=== PATIENT | female | born 1930 | race Caucasian/White ===

== ENCOUNTER → 2016-12-24 | Outpatient (CLI) | payer MEDICARE, OTHER | LOC: MW.CHFP 08:00 | CPT/HCPCS: 85610; 99211 ==

== ENCOUNTER → 2017-01-24 | Outpatient (CLI) | payer MEDICARE, OTHER | LOC: MW.CHFP 08:00 | PROVIDERS: ATTEND Student in an Organized Health Care Education/Training Program | DX: Z51.81 Encounter for therapeutic drug level monitoring (principal); Z79.01 Long term (current) use of anticoagulants; I48.91 Unspecified atrial fibrillation | CPT/HCPCS: 85610; 99211 ==

== ENCOUNTER → 2017-02-21 | Outpatient (CLI) | payer MEDICARE, OTHER | LOC: MW.CHFP 08:00 | PROVIDERS: ATTEND Student in an Organized Health Care Education/Training Program | DX: Z51.81 Encounter for therapeutic drug level monitoring (principal); Z79.01 Long term (current) use of anticoagulants; I48.91 Unspecified atrial fibrillation | CPT/HCPCS: 85610; 99211 ==

== ENCOUNTER → 2017-03-14 | Outpatient (CLI) | payer MEDICARE, OTHER | LOC: MW.CHFP 08:00 | PROVIDERS: ATTEND Student in an Organized Health Care Education/Training Program | DX: Z51.81 Encounter for therapeutic drug level monitoring (principal); Z79.01 Long term (current) use of anticoagulants; I48.91 Unspecified atrial fibrillation | CPT/HCPCS: 85610; 99211 ==

== ENCOUNTER 2017-10-15 15:14 | Emergency (ER) | payer MEDICARE, OTHER ==
--- NOTE | 2017-10-15 16:38 | EDM.PDOC ---
ED HPI GENERAL MEDICAL PROBLEM - General Chief Complaint: General Stated Complaint: FALL Time Seen by Provider: 10/15/17 15:18 Source of Information: Reports: Patient History Limitations: Reports: No Limitations - History of Present Illness INITIAL COMMENTS - FREE TEXT/NARRATIVE: HISTORY AND PHYSICAL: History of present illness: Patient is an 87-year-old female who presents to the emergency room with complaints of a fall and hitting her head. States she was in a hurry to get in the car with her son when she tripped and fell hitting her left side of her forehead. She denies any loss of consciousness. She states "I wouldn't have came in, but my son made me". Patient is on coumadin for a-fib. Small, nonbleeding, laceration noted to the left eyebrow. Pulses are equal and reactive bilaterally. Old healing bruises noted to her right forearm, patient reports that these are old due to her Coumadin use. Denies any chest pain, shortness of breath, abdominal pain, nausea, vomiting or diarrhea. She denies feeling lightheaded, near syncope, change in vision. Reports her immunizations are up-to-date including her tetanus. Past medical history of atrial fibrillation, CVA, hypertension, anemia, mitral regurgitation. Review of systems: As per history of present illness and below otherwise all systems reviewed and negative. Past medical history: As per history of present illness and as reviewed below otherwise noncontributory. Surgical history: As per history of present illness and as reviewed below otherwise noncontributory. Social history: No reported history of drug or alcohol abuse. Family history: As per history of present illness and as reviewed below otherwise noncontributory. Physical exam: General: Nontoxic-appearing 87-year-old female. Alert and oriented. Appears in no acute distress. HEENT: Atraumatic, normocephalic, pupils reactive, negative for conjunctival pallor or scleral icterus, mucous membranes moist, throat clear, neck supple, nontender, trachea midline. Lungs: Clear to auscultation, breath sounds equal bilaterally, chest nontender. Heart: S1S2, irregularly regular Abdomen: Soft, nondistended, nontender. Negative for masses or hepatosplenomegaly. Negative for costovertebral tenderness. Pelvis: Stable nontender. Genitourinary: Deferred. Rectal: Deferred. Skin: 0.75 cm laceration noted along the left eyebrow. No current bleeding noted. Old and healing bruises noted to extremities (states these are "normal" due to her coumadin use). C-Spine/Back: No pinpoint vertebral tenderness upon palpation. Did not appreciate any crepitus, step-offs, obvious deformities with palpation of the cervical, thoracic, lumbar spine. Ambulatory with assistance (patient's normal) Extremities: Moves all extremities without difficulty or deficits, negative for cords or calf pain. Neurovascular unremarkable. Neuro: Awake, alert, oriented. Cranial nerves II through XII unremarkable. Cerebellum unremarkable. Motor and sensory unremarkable throughout. Exam nonfocal. No changes noted to EKG. Labs are within normal limits. CT head and C-spine are within normal limits and show no acute fractures or bleeding. These results were shared with the patient and family member at bedside. Her face has been cleaned with chlorhexidine. No laceration repair is needed. She states she is comfortable to go home. She offers no current complaints. She states she will follow up with her primary caregiver in the next 1-2 days. Denies any further questions at this time. Diagnostics: CBC, PT/INR, CT of head and C-spine, EKG, orthostatic vitals Therapeutics: [] Impression: Head injury without loss of consciousness Fall Contusion Plan: 1. Please review the head injury instructions. 2. May use Tylenol as needed for pain management. Ice for the first 24 hours then may switch to gentle heat. 3. Follow-up with your primary caregiver in the next 1-2 days. Return to the ED as needed and as discussed. Definitive disposition and diagnosis as appropriate pending reevaluation and review of above. Onset: Today Onset Date: 10/15/17 Duration: Minutes: Location: Reports: Head, Face - Related Data Allergies Allergy/AdvReac Type Severity Reaction Status Date / Time codeine Allergy "feels Verified 10/15/17 15:43 like I'm flying" Home Meds: Home Meds Acetaminophen [Tylenol] 325 mg PO ASDIRECTED PRN 03/23/16 [History] Aspirin 81 mg PO DAILY 03/23/16 [History] Calcium Citrate/Vitamin D3 [Calcium Cit-Vit D 315-200] 1 each PO DAILY 03/23/16 [History] Cyanocobalamin (Vitamin B-12) [B-12] 1,000 mcg PO DAILY 03/23/16 [History] Lisinopril [Prinivil] 2.5 mg PO DAILY 03/23/16 [History] Loratadine 10 mg PO DAILY 03/23/16 [History] Metoprolol Succinate [Toprol XL 50mg] 50 mg PO DAILY 03/23/16 [History] Psyllium Husk/Aspartame [Metamucil Sugar-Free Powder] 1 tbsp PO DAILY PRN [History] Warfarin Sodium [Warfarin Sodium] 2.5 mg PO ASDIRECTED 03/23/16 [History] atorvaSTATin Calcium [Atorvastatin Calcium] 20 mg PO DAILY 03/23/16 [History] Past Medical History HEENT History: Reports: Epistaxis, Other (See Below) Other HEENT History: states 3 episodes of epistaxis this year. 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 History: atrial flutter DATA MANAGEMENT History: Reports: Musculoskeletal History: Reports: Fracture Neurological History: Reports: CVA - Past Surgical History Neurological Surgical History: Reports: None Musculoskeletal Surgical History: Reports: Hip Replacement, Knee Replacement Social & Family History - Tobacco Use Smoking Status *Q: Never Smoker Second Hand Smoke Exposure: No - Caffeine Use Caffeine Use: Reports: None - Recreational Drug Use Recreational Drug Use: No ED ROS GENERAL - Review of Systems Review Of Systems: ROS reveals no pertinent complaints other than HPI. ED EXAM, GENERAL - Physical Exam Exam: See Below (See dictation) Course - Vital Signs Last Recorded V/S: Last Vital Signs Temp 97.8 F 10/15/17 15:40 Pulse 76 10/15/17 15:40 Resp 20 10/15/17 15:40 BP 160/80 H 10/15/17 15:40 Pulse Ox 96 10/15/17 15:40 - Orders/Labs/Meds Orders: Active Orders 24 hr Category Date Time Status Communication Order [RC] STAT Care 10/15/17 15:51 Active EKG Documentation Completion [RC] STAT Care 10/15/17 16:38 Active Orthostatic Vital Signs [RC] ASDIRECTED Care 10/15/17 16:38 Active Cervical Spine wo Cont [CT] Stat Exams 10/15/17 15:39 Ordered Head wo Cont [CT] Stat Exams 10/15/17 15:39 Taken Labs: Laboratory Tests 10/15/17 10/15/17 10/15/17 Range/Units 15:37 15:37 15:42 WBC 7.73 (4.0-11.0) K/uL RBC 4.62 (4.30-5.90) M/uL Hgb 14.5 (12.0-16.0) g/dL Hct 44.7 (36.0-46.0) % MCV 96.8 (80.0-98.0) fL MCH 31.4 (27.0-32.0) pg MCHC 32.4 (31.0-37.0) g/dL RDW Std Deviation 49.1 (28.0-62.0) fl RDW Coeff of Lori 14 (11.0-15.0) % Plt Count 140 L (150-400) K/uL MPV 10.00 (7.40-12.00) fL Neut % (Auto) 64.5 (48.0-80.0) % Lymph % (Auto) 19.3 (16.0-40.0) % [place] % (Auto) 10.0 (0.0-15.0) % Eos % (Auto) 5.7 (0.0-7.0) % Baso % (Auto) 0.5 (0.0-1.5) % Neut # (Auto) 5.0 (1.4-5.7) K/uL Lymph # (Auto) 1.5 (0.6-2.4) K/uL [place] # (Auto) 0.8 (0.0-0.8) K/uL Eos # (Auto) 0.4 (0.0-0.7) K/uL Baso # (Auto) 0.0 (0.0-0.1) K/uL Nucleated RBC % 0.0 /100WBC Nucleated RBCs # 0 K/uL INR 1.66 H (0.86-1.11) Troponin I < 0.10 (0.0-0.29) NG/ML Departure - Departure Time of Disposition: 17:41 Disposition: Home, Self-Care 01 Clinical Impression: Head injury, acute, without loss of consciousness Qualifiers: Encounter type: initial encounter Qualified Code(s): S09.90XA - Unspecified injury of head, initial encounter Contusion Qualifiers: Encounter type: initial encounter Contusion area: head Contusion of head detail : scalp Qualified Code(s): S00.03XA - Contusion of scalp, initial encounter - Discharge Information Referrals: PCP,None [Primary Care Provider] - Forms: ED Department Discharge Additional Instructions: My general discharge The following information is given to patients seen in the emergency department who are being discharged to home. This information is to outline your options for follow-up care. We provide all patients seen in our emergency department with a follow-up referral. The need for follow-up, as well as the timing and circumstances, are variable depending upon the specifics of your emergency department visit. If you don't have a primary care physician on staff, we will provide you with a referral. We always advise you to contact your personal physician following an emergency department visit to inform them of the circumstance of the visit and for follow-up with them and/or the need for any referrals to a consulting specialist. The emergency department will also refer you to a specialist when appropriate. This referral assures that you have the opportunity for follow-up care with a specialist. All of these measure are taken in an effort to provide you with optimal care, which includes your follow-up. Under all circumstances we always encourage you to contact your private physician who remains a resource for coordinating your care. When calling for follow-up care, please make the office aware that this follow-up is from your recent emergency room visit. If for any reason you are refused follow-up, please contact the Emergency Department at and asked to speak to the emergency department charge nurse. Primary Care [address] [place] [id number] 1. Please review the head injury instructions. 2. May use Tylenol as needed for pain management. Ice for the first 24 hours then may switch to gentle heat. 3. Follow-up with your primary caregiver in the next 1-2 days. Return to the ED as needed and as discussed. - My Orders Last 24 Hours: My Active Orders 10/15/17 15:39 Cervical Spine wo Cont [CT] Stat Head wo Cont [CT] Stat 10/15/17 15:51 Communication Order [RC] STAT 10/15/17 16:38 EKG Documentation Completion [RC] STAT Orthostatic Vital Signs [RC] ASDIRECTED - Assessment/Plan Last 24 Hours: My Active Orders 10/15/17 15:39 Cervical Spine wo Cont [CT] Stat Head wo Cont [CT] Stat 10/15/17 15:51 Communication Order [RC] STAT 10/15/17 16:38 EKG Documentation Completion [RC] STAT Orthostatic Vital Signs [RC] ASDIRECTED
[2017-10-15 18:15] VITALS: BP 158/74
--- NOTE | 2017-10-16 10:47 | CT ---
EXAM DATE: 10/15/17 PATIENT'S AGE: 87 Patient: SANDOVAL VALDERRAMA Facility: [place], [place] Site . Site : [id number] Study: CT Head [id number] 4:29:01 PM Ordering Physician: Doctor Cantu Final Report: INDICATION: 87-year-old female, status post fall. TECHNIQUE: CT Head without i.v. contrast. COMPARISON: Prior head CT dated 10/11/2016. FINDINGS: Underlying atrophy with stable caliber of lateral ventricles and underlying chronic microvascular disease. Amin-white matter differentiation preserved. No intracranial hemorrhage or abnormal extra-axial fluid collection. No midline shift. Unremarkable appearance to the thalami and basal ganglia. Incidental note of cavum vergae, unchanged. Calcified plaque involving the bilateral intracranial internal carotid arteries and distal vertebral arteries. No dense MCA sign. Calvarium intact. Paranasal sinuses and mastoid air cells are clear. IMPRESSION: 1. Age-related atrophy and chronic microvascular disease. No acute abnormality or hemorrhage. Dictated by Jose Carter MD @ 10/15/2017 5:29:25 PM Dictated by: Jose Carter MD @ 10/15/2017 17:29:40 (Electronic Signature) Report Signed by Proxy. [facility]ER[facility] CHAFFEE HOSPITALTiffani
--- NOTE | 2017-10-16 10:48 | CT ---
EXAM DATE: 10/15/17 PATIENT'S AGE: 87 Patient: SANDOVAL VALDERRAMA Facility: [place], [place] Site Site : 1932 Study: CT Spine Cervical [id number]/26/2017 4:36:07 PM Ordering Physician: ZARIA KAY NP Final Report: INDICATION: Status post fall. TECHNIQUE: CT cervical spine without i.v. contrast. Coronal and sagittal reformats were obtained. COMPARISON: None FINDINGS: Vertebral alignment: Alignment is normal. Vertebrae: No acute fractures or aggressive osseous lesions are identified. Discs and facet joints: Multilevel degenerative disk disease. Severe multilevel facet hypertrophic changes. Extraspinal findings: The prevertebral soft tissues are unremarkable in appearance. The visualized lung apices and mediastinum are unremarkable. IMPRESSION: 1. No acute cervical spine fracture or abnormal subluxation injury. 2. Multilevel cervical spine degenerative disc disease with severe facet hypertrophic changes. Dictated by Jose Carter MD @ 10/15/2017 5:39:54 PM Dictated by: Jose Carter MD @ 10/15/2017 17:39:59 (Electronic Signature) Report Signed by Proxy. LIN
== END 2017-10-15 18:00 | disposition home or self-care (01) ==
LOC: MW.ED 15:14
DX: S01.112A Laceration without foreign body of left eyelid and periocular area, initial encounter (principal); S09.90XA Unspecified injury of head, initial encounter; I48.91 Unspecified atrial fibrillation; Z79.82 Long term (current) use of aspirin; Z79.899 Other long term (current) drug therapy; Z79.01 Long term (current) use of anticoagulants; W01.10XA Fall on same level from slipping, tripping and stumbling with subsequent striking against unspecified object, initial encounter; Z88.5 Allergy status to narcotic agent
CPT/HCPCS: 36415; 70450; 70450-26; 72125; 72125-26; 84484; 85025; 85610; 93005; 99284; 99284-25

== ENCOUNTER 2017-11-17 16:57 | Inpatient (IN) | payer MEDICARE, OTHER ==
--- NOTE | 2017-11-17 17:32 | EDM.PDOC ---
ED HPI GENERAL MEDICAL PROBLEM - General Chief Complaint: Trauma Stated Complaint: PT FELL AND HURT RT KNEE Time Seen by Provider: 11/17/17 17:34 Source of Information: Reports: Patient History Limitations: Reports: No Limitations - History of Present Illness INITIAL COMMENTS - FREE TEXT/NARRATIVE: HISTORY AND PHYSICAL: History of present illness: Patient is an 87-year-old female who presents to the emergency room by ambulance after falling yesterday and now has complaints of right knee pain. She states that yesterday around 8 PM she was folding some blankets and trying to bring them to her closet when she lost her balance and fell. She tried to crawl to the phone to call her son but was unable to reach her. Her son came home around 8:30 PM and did assist her back to her bedroom. This morning she tried to get up to ambulate and states she was unable to do so due to the right knee pain. As the day has progressed she has had increased pain and is still unable to bear weight, and called the ambulance for evaluation. The patient does take warfarin. She states she did not hit her head or any loss of consciousness. She denies any chest pain, shortness of breath, abdominal pain, nausea, vomiting or diarrhea. Review of systems: As per history of present illness and below otherwise all systems reviewed and negative. Past medical history: As per history of present illness and as reviewed below otherwise noncontributory. Surgical history: As per history of present illness and as reviewed below otherwise noncontributory. Social history: No reported history of drug or alcohol abuse. Family history: As per history of present illness and as reviewed below otherwise noncontributory. Physical exam: Gen.: Well-developed and well-nourished 87-year-old female. Alert and oriented. Nontoxic appearing and in no acute distress. HEENT: Atraumatic, normocephalic, pupils reactive, negative for conjunctival pallor or scleral icterus, mucous membranes moist, throat clear, neck supple, nontender, trachea midline. Lungs: Clear to auscultation, breath sounds equal bilaterally, chest nontender. Heart: S1S2, regularly irregular Abdomen: Soft, nondistended, nontender. Negative for masses or hepatosplenomegaly. Negative for costovertebral tenderness. Pelvis: Stable nontender. Genitourinary: Deferred. Rectal: Deferred. Skin: Small abrasion to right knee and elbow. Extremities: Atraumatic, negative for cords or calf pain. Neurovascular unremarkable. Neuro: Awake, alert, oriented. Cranial nerves II through XII unremarkable. Cerebellum unremarkable. Motor and sensory unremarkable throughout. Exam nonfocal. When the nursing staff was assisting the patient to the cot she was incontinent and had a strong odor. Will add a urinalysis to her lab work. Patient has been falling "more often" at home. She does take Coumadin, will do a CT of the head and C-spine for precautionary measures. Head CT and cervical spine are normal. The knee x-ray shows an acute nondisplaced fracture of the lateral aspect of the distal femoral metaphysis. We do not have orthopedics on-call at this time. They will be available tomorrow. Patient states that she is uncomfortable going home and she does not feel she can bear weight and move around in her house. The at the bedside is refusing to allow her to be discharged. He states that she is unable to use a walker "when she is well... how will she move with a fracture". She is on 3 L per nasal cannula and satting 92%. On room air she was satting 88-90%. Dr. Romo was consulted on this case. He will admit her for fall, UTI and hypoxemia. The plan is to consult Orthopedics tomorrow when they are available. Diagnostics: CBC, CMP, troponin, EKG, chest x-ray, head/c-spine CT, right knee x-ray Therapeutics: Oxygen, morphine Impression: #1 Fall #2 Nondisplaced fracture distal femoral metaphysis #3 UTI #4 Hypoxemia Plan: Observation admission Definitive disposition and diagnosis as appropriate pending reevaluation and review of above. Duration: Day(s): Location: Reports: Lower Extremity, Right right knee Pain Score (Numeric/FACES): 10 - Related Data Allergies Allergy/AdvReac Type Severity Reaction Status Date / Time codeine Allergy "feels Verified 11/17/17 17:22 like I'm flying" Home Meds: Home Meds Acetaminophen [Tylenol] 325 mg PO ASDIRECTED PRN 03/23/16 [History] Aspirin 81 mg PO DAILY 03/23/16 [History] Calcium Citrate/Vitamin D3 [Calcium Cit-Vit D 315-200] 1 each PO DAILY 03/23/16 [History] Cyanocobalamin (Vitamin B-12) [B-12] 1,000 mcg PO DAILY 03/23/16 [History] Lisinopril [Prinivil] 2.5 mg PO DAILY 03/23/16 [History] Loratadine 10 mg PO DAILY 03/23/16 [History] Metoprolol Succinate [Toprol XL 50mg] 50 mg PO DAILY 03/23/16 [History] Warfarin Sodium [Warfarin Sodium] 2.5 mg PO ASDIRECTED 03/23/16 [History] atorvaSTATin Calcium [Atorvastatin Calcium] 20 mg PO DAILY 03/23/16 [History] Past Medical History HEENT History: Reports: Epistaxis, Other (See Below) Other HEENT History: states 3 episodes of epistaxis this year. 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 (See dictation) ED EXAM, GENERAL - Physical Exam Exam: See Below (See dictation) Course - Vital Signs Last Recorded V/S: Last Vital Signs Temp 97.8 F 11/17/17 19:40 Pulse 62 11/17/17 19:40 Resp 18 11/17/17 19:40 BP 155/92 H 11/17/17 19:40 Pulse Ox 94 L 11/17/17 19:40 - Orders/Labs/Meds Orders: Active Orders 24 hr Category Date Time Status EKG Documentation Completion [RC] STAT Care 11/17/17 17:32 Active Cervical Spine 2V or 3V [CR] Stat Exams 11/17/17 17:32 Taken Chest 1V Frontal [CR] Stat Exams 11/17/17 17:32 Taken Head wo Cont [CT] Stat Exams 11/17/17 17:32 Taken Knee 1V or 2V Rt [CR] Stat Exams 11/17/17 17:32 Taken CULTURE URINE [RM] Stat Lab 11/17/17 19:40 Ordered Labs: Laboratory Tests 11/17/17 11/17/17 11/17/17 Range/Units 17:02 17:02 17:02 WBC 8.52 (4.0-11.0) K/uL RBC 4.77 (4.30-5.90) M/uL Hgb 14.8 (12.0-16.0) g/dL Hct 45.5 (36.0-46.0) % MCV 95.4 (80.0-98.0) fL MCH 31.0 (27.0-32.0) pg MCHC 32.5 (31.0-37.0) g/dL RDW Std Deviation 47.0 (28.0-62.0) fl RDW Coeff of Lori 14 (11.0-15.0) % Plt Count 151 (150-400) K/uL MPV 11.00 (7.40-12.00) fL Neut % (Auto) 65.4 (48.0-80.0) % Lymph % (Auto) 19.8 (16.0-40.0) % [place] % (Auto) 9.6 (0.0-15.0) % Eos % (Auto) 4.7 (0.0-7.0) % Baso % (Auto) 0.5 (0.0-1.5) % Neut # (Auto) 5.6 (1.4-5.7) K/uL Lymph # (Auto) 1.7 (0.6-2.4) K/uL [place] # (Auto) 0.8 (0.0-0.8) K/uL Eos # (Auto) 0.4 (0.0-0.7) K/uL Baso # (Auto) 0.0 (0.0-0.1) K/uL Nucleated RBC % 0.2 /100WBC Nucleated RBCs # 0 K/uL INR 2.68 Sodium 141 (136-146) mmol/L Potassium 4.1 (3.5-5.1) mmol/L Chloride 107 (98-110) mmol/L Carbon Dioxide 23 (21-31) mmol/L BUN 15 (6.0-23.0) mg/dL Creatinine 0.8 (0.6-1.5) mg/dL Est Cr Clr Drug Dosing 44.40 mL/min Estimated GFR (MDRD) > 60.0 ml/min Glucose 97 (60-110) mg/dL Calcium 9.3 (8.8-10.8) mg/dL Total Bilirubin 1.9 H (0.1-1.5) mg/dL AST 25 (5-40) IU/L ALT 15 (8-54) IU/L Alkaline Phosphatase 86 (40-150) Creatine Kinase 74 (9-236) IU/L Troponin I (0.0-0.29) NG/ML Total Protein 7.0 (6.0-8.0) g/dL Albumin 3.9 (3.4-4.8) g/dL Globulin 3.1 (2.0-3.5) g/dL Albumin/Globulin Ratio 1.3 (1.3-2.8) Urine Color Urine Appearance Urine pH (5.0-8.0) Ur Specific [place] (1.001-1.035) Urine Protein (NEGATIVE) mg/dL Urine Glucose (UA) (NEGATIVE) mg/dL Urine Ketones (NEGATIVE) mg/dL Urine Occult Blood (NEGATIVE) Urine Nitrite (NEGATIVE) Urine Bilirubin (NEGATIVE) Urine Urobilinogen (<2.0) EU/dL Ur Leukocyte Esterase (NEGATIVE) Urine RBC (0-2/HPF) Urine WBC (0-5/HPF) Ur Epithelial Cells (NONE-FEW) Urine Bacteria (NEGATIVE) 11/17/17 11/17/17 Range/Units 17:02 17:10 WBC (4.0-11.0) K/uL RBC (4.30-5.90) M/uL Hgb (12.0-16.0) g/dL Hct (36.0-46.0) % MCV (80.0-98.0) fL MCH (27.0-32.0) pg MCHC (31.0-37.0) g/dL RDW Std Deviation (28.0-62.0) fl RDW Coeff of Lori (11.0-15.0) % Plt Count (150-400) K/uL MPV (7.40-12.00) fL Neut % (Auto) (48.0-80.0) % Lymph % (Auto) (16.0-40.0) % [place] % (Auto) (0.0-15.0) % Eos % (Auto) (0.0-7.0) % Baso % (Auto) (0.0-1.5) % Neut # (Auto) (1.4-5.7) K/uL Lymph # (Auto) (0.6-2.4) K/uL [place] # (Auto) (0.0-0.8) K/uL Eos # (Auto) (0.0-0.7) K/uL Baso # (Auto) (0.0-0.1) K/uL Nucleated RBC % /100WBC Nucleated RBCs # K/uL INR Sodium (136-146) mmol/L Potassium (3.5-5.1) mmol/L Chloride (98-110) mmol/L Carbon Dioxide (21-31) mmol/L BUN (6.0-23.0) mg/dL Creatinine (0.6-1.5) mg/dL Est Cr Clr Drug Dosing mL/min Estimated GFR (MDRD) ml/min Glucose (60-110) mg/dL Calcium (8.8-10.8) mg/dL Total Bilirubin (0.1-1.5) mg/dL AST (5-40) IU/L ALT (8-54) IU/L Alkaline Phosphatase (40-150) Creatine Kinase (9-236) IU/L Troponin I < 0.10 (0.0-0.29) NG/ML Total Protein (6.0-8.0) g/dL Albumin (3.4-4.8) g/dL Globulin (2.0-3.5) g/dL Albumin/Globulin Ratio (1.3-2.8) Urine Color YELLOW Urine Appearance CLEAR Urine pH 6.0 (5.0-8.0) Ur Specific [place] 1.025 (1.001-1.035) Urine Protein 100 (NEGATIVE) mg/dL Urine Glucose (UA) NEGATIVE (NEGATIVE) mg/dL Urine Ketones NEGATIVE (NEGATIVE) mg/dL Urine Occult Blood LARGE H (NEGATIVE) Urine Nitrite POSITIVE H (NEGATIVE) Urine Bilirubin SMALL H (NEGATIVE) Urine Urobilinogen 1.0 (<2.0) EU/dL Ur Leukocyte Esterase LARGE (NEGATIVE) Urine RBC 40-45 (0-2/HPF) Urine WBC 100-120 (0-5/HPF) Ur Epithelial Cells FEW (NONE-FEW) Urine Bacteria 1+ H (NEGATIVE) Meds: Medications Discontinued Medications Generic Name Dose Route Start Last Admin Trade Name Melida PRN Reason Stop Dose Admin Cephalexin 500 mg 11/17/17 19:09 Keflex PO 11/17/17 19:10 ONETIME ONE Departure - Departure Time of Disposition: 20:07 Disposition: Refer to Observation Clinical Impression: Hypoxemia Fall Qualifiers: Encounter type: initial encounter Qualified Code(s): W19.XXXA - Unspecified fall, initial encounter Fracture, femur, distal Qualifiers: Encounter type: initial encounter Fracture type: closed Fracture morphology: other fracture Laterality: right Qualified Code(s): S72.491A - Other fracture of lower end of right femur, initial encounter for closed fracture UTI (urinary tract infection) Qualifiers: Urinary tract infection type: acute cystitis Hematuria presence: with hematuria Qualified Code(s): N30.01 - Acute cystitis with hematuria - Discharge Information Forms: ED Department Discharge - My Orders Last 24 Hours: My Active Orders 11/17/17 17:32 EKG Documentation Completion [RC] STAT Cervical Spine 2V or 3V [CR] Stat Chest 1V Frontal [CR] Stat Head wo Cont [CT] Stat Knee 1V or 2V Rt [CR] Stat 11/17/17 19:40 CULTURE URINE [RM] Stat - Assessment/Plan Last 24 Hours: My Active Orders 11/17/17 17:32 EKG Documentation Completion [RC] STAT Cervical Spine 2V or 3V [CR] Stat Chest 1V Frontal [CR] Stat Head wo Cont [CT] Stat Knee 1V or 2V Rt [CR] Stat 11/17/17 19:40 CULTURE URINE [RM] Stat
[2017-11-17 18:18] LABS: CHLORIDE,CL 107 mmol/L (98-110); SODIUM,NA 141 mmol/L (136-146)
[2017-11-17] MEDS ORDERED: Cephalexin 500 MG Cap PO ONE (19:09)
[2017-11-17] MEDS ORDERED: Acetaminophen 325 MG Tab PO PRN (23:00)
[2017-11-17] MEDS ORDERED: Ondansetron 4 MG/2 ML SDV IVPUSH PRN (23:25)
--- NOTE | 2017-11-17 23:44 | PCM.HP ---
H&P History of Present Illness - General Admit Problem/Dx: Admission Diagnosis/Problem Admission Diagnosis/Problem UTI, Urinary tract infectious disease - History of Present Illness Initial Comments - Free Text/Narative: 87 yo female with pmh of atrial fibrillation and CVA on coumadin who presents to the ED with right leg pain. Patient tripped over her feet while trying to pick something off the ground. She fell and hear something. She had pain in her right leg immediatly. The fall occured yesterday and she sat in her chair most of the day today as she was afraid to come in as she did not want to be sent to [facility]. She did call EMS as she was not able to move her leg without pain. In the ED she was discovered on X-ray to have an acute nondisplaced frature of the lateral aspect of the distal femoral metaphysis with lipohemarthrosis. She was also noted to have a UTI. She denies any chest pain, shortness of breath, dizziness, numbness or weakness. right knee Pain Score (Numeric/FACES): 5 - Related Data Allergies/Adverse Reactions: Allergies Allergy/AdvReac Type Severity Reaction Status Date / Time codeine Allergy "feels Verified 11/17/17 17:22 like I'm flying" Home Medications: Home Meds Acetaminophen [Tylenol] 325 mg PO ASDIRECTED PRN 03/23/16 [History] Aspirin 81 mg PO DAILY 03/23/16 [History] Calcium Citrate/Vitamin D3 [Calcium Cit-Vit D 315-200] 1 each PO DAILY 03/23/16 [History] Cyanocobalamin (Vitamin B-12) [B-12] 1,000 mcg PO DAILY 03/23/16 [History] Lisinopril [Prinivil] 2.5 mg PO DAILY 03/23/16 [History] Loratadine 10 mg PO BEDTIME 03/23/16 [History] Metoprolol Succinate [Toprol XL 50mg] 50 mg PO DAILY 03/23/16 [History] Warfarin Sodium [Warfarin Sodium] 2.5 mg PO BEDTIME 03/23/16 [History] atorvaSTATin Calcium [Atorvastatin Calcium] 20 mg PO DAILY 03/23/16 [History] Past Medical History HEENT History: Reports: Epistaxis, Other (See Below) Other HEENT History: states 3 episodes of epistaxis this year. 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: Musculoskeletal History: Reports: Fracture Neurological History: Reports: CVA - Infectious Disease History Infectious Disease History: Reports: Chicken Pox, Measles - Past Surgical History Neurological Surgical History: Reports: None Musculoskeletal Surgical History: Reports: Hip Replacement, Knee Replacement Social & Family History - Family History Family Medical History: Noncontributory - Tobacco Use Smoking Status *Q: Never Smoker Second Hand Smoke Exposure: No - Caffeine Use Caffeine Use: Reports: Tea - Recreational Drug Use Recreational Drug Use: No H&P Review of Systems - Review of Systems: Review Of Systems: ROS reveals no pertinent complaints other than HPI. Exam - Exam Exam: See Below - Vital Signs Vital Signs: Last Vital Signs Temp 36.6 C 11/17/17 20:59 Pulse 69 11/17/17 20:59 Resp 16 11/17/17 20:59 BP 103/81 11/17/17 20:59 Pulse Ox 92 L 11/17/17 20:59 Weight: 78.8 kg - Exam General: Alert, Oriented HEENT: Mucosa Moist & Gully Neck: Supple Lungs: Clear to Auscultation, Normal Respiratory Effort Cardiovascular: Regular Rate, Regular Rhythm GI/Abdominal Exam: Soft, Non-Tender, No Distention Extremities: Non-Tender, No Pedal Edema, Normal Capillary Refill. No: Joint Swelling Skin: Warm, Dry, Intact Neurological: Sensation Intact. No: Focal Deficit - Patient Data Result Diagrams: 11/17/17 17:02 11/17/17 17:02 *Q Meaningful Use (ADM) - VTE *Q VTE Criteria *Q: - Stroke *Q Stroke Criteria *Q: - AMI *Q AMI Criteria *Q: Problem List Initiated/Reviewed/Updated: Yes Orders Last 24hrs: Active Orders 24 hr Category Date Time Status Antiembolic Devices [RC] PER UNIT ROUTINE Care 11/17/17 23:26 Ordered Oxygen Therapy [RC] PRN Care 11/17/17 23:25 Ordered Up ad Deneen [RC] ASDIRECTED Care 11/17/17 23:25 Ordered VTE/DVT Education [RC] PER UNIT ROUTINE Care 11/17/17 23:25 Ordered Vital Signs [RC] Q4H Care 11/17/17 23:25 Ordered Regular Diet [DIET] Diet 11/18/17 Breakfast Active BASIC METABOLIC PANEL,BMP [CHEM] Routine Lab 11/18/17 05:00 Ordered CBC WITH AUTO DIFF [HEME] Routine Lab 11/18/17 05:00 Ordered Acetaminophen [Tylenol] Med 11/17/17 23:00 Active 650 mg PO Q4H PRN Aspirin Med 11/18/17 09:00 Ordered 81 mg PO DAILY Cephalexin [Keflex] Med 11/18/17 23:00 Active 500 mg PO Q12H Lisinopril Med 11/18/17 09:00 Ordered 2.5 mg PO DAILY Metoprolol Succinate [Toprol XL] Med 11/18/17 09:00 Ordered 50 mg PO DAILY Ondansetron [Zofran] Med 11/17/17 23:25 Ordered 4 mg IVPUSH Q4H PRN atorvaSTATin [Lipitor] Med 11/18/17 09:00 Ordered 20 mg PO DAILY Sequential Compression Device [OM.PC] Per Unit Routine Oth 11/17/17 23:25 Ordered Resuscitation Status Routine Resus Stat 11/17/17 23:25 Ordered Medication Orders Acetaminophen (Tylenol) 650 mg PO Q4H PRN PRN Reason: Pain Aspirin (Aspirin) 81 mg PO DAILY PATRICIA Atorvastatin Calcium (Lipitor) 20 mg PO DAILY PATRICIA Cephalexin (Keflex) 500 mg PO Q12H PATRICIA Metoprolol Succinate (Toprol Xl) 50 mg PO DAILY PATRICIA Non-Formulary Medication (Lisinopril) 2.5 mg PO DAILY PATRICIA Ondansetron HCl (Zofran) 4 mg IVPUSH Q4H PRN PRN Reason: Nausea Assessment/Plan Comment:: 87 yo female admitted following a fall with femoral fracture Nondisplace right femoral fracture: will consult orthopedics UTI: on keflex
[2017-11-18 06:39] LABS: CHLORIDE,CL 107 mmol/L (98-110); SODIUM,NA 139 mmol/L (136-146)
[2017-11-18] MEDS ORDERED: Acetaminophen/HYDROcodone 325-5 MG Tab PO PRN (09:28)
[2017-11-18] MEDS: Morphine 2 MG/ML Syringe IVPUSH PRN ×2 (09:42→19:50)
[2017-11-18] MEDS: Aspirin 81 MG Tab.Chew PO SCH (10:16)
[2017-11-18] MEDS: atorvaSTATin 20 MG Tab PO SCH (10:16)
[2017-11-18] MEDS: Lisinopril 5 MG Tab PO SCH (10:17)
[2017-11-18] MEDS: Metoprolol Succinate 50 MG Tab.ER PO SCH (10:18)
--- NOTE | 2017-11-18 13:10 | PCM.PN ---
- General Info Date of Service: 11/18/17 Admission Dx/Problem (Free Text): Admission Diagnosis/Problem Admission Diagnosis/Problem UTI, Urinary tract infectious disease and distal femoral fracture on Right Subjective Update: Having pain to her R knee and slightly just above it. No chest pain or SOB. Otherwise doing ok, daughter at bedside. Functional Status: Reports: Tolerating Diet, Urinating. Denies: Pain Controlled , Ambulating - Review of Systems Pulmonary: Reports: No Symptoms. Denies: Shortness of Breath Cardiovascular: Reports: No Symptoms. Denies: Chest Pain Gastrointestinal: Reports: No Symptoms. Denies: Abdominal Pain, Nausea, Vomiting Musculoskeletal: Reports: Joint Pain (R knee pain) Neurological: Reports: No Symptoms. Denies: Confusion Psychiatric: Reports: No Symptoms. Denies: Confusion - Patient Data Vitals - Most Recent: Last Vital Signs Temp 97.2 F 11/18/17 11:51 Pulse 102 H 11/18/17 11:51 Resp 20 11/18/17 11:51 BP 109/76 11/18/17 11:51 Pulse Ox 98 11/18/17 11:51 Weight - Most Recent: 78.8 kg Med Orders - Current: Current Medications Acetaminophen (Tylenol) 650 mg PO Q4H PRN PRN Reason: Pain Hydrocodone Bitart/Acetaminophen ([place] 325-5 Mg) 1 tab PO Q4H PRN PRN Reason: Pain Aspirin (Aspirin) 81 mg PO DAILY [facility] Last Admin: 11/18/17 10:16 Dose: 81 mg Atorvastatin Calcium (Lipitor) 20 mg PO DAILY [facility] Last Admin: 11/18/17 10:16 Dose: 20 mg Cephalexin (Keflex) 500 mg PO Q12H [facility] Lisinopril (Prinivil) 2.5 mg PO DAILY [facility] Last Admin: 11/18/17 10:17 Dose: 2.5 mg Metoprolol Succinate (Toprol Xl) 50 mg PO DAILY [facility] Last Admin: 11/18/17 10:18 Dose: 50 mg Morphine Sulfate (Morphine) 2 mg IVPUSH Q4H PRN PRN Reason: severe pain Last Admin: 11/18/17 09:42 Dose: 2 mg Ondansetron HCl (Zofran) 4 mg IVPUSH Q4H PRN PRN Reason: Nausea Discontinued Medications Cephalexin (Keflex) 500 mg PO ONETIME ONE Stop: 11/17/17 19:10 Last Admin: 11/17/17 20:17 Dose: 500 mg - Exam General: Alert, Oriented, Cooperative, Mild Distress (Noted to be in pain) Neck: Supple Lungs: Clear to Auscultation, Normal Respiratory Effort Cardiovascular: Regular Rate, Regular Rhythm GI/Abdominal Exam: Normal Bowel Sounds, Soft, Non-Tender, No Organomegaly, No Distention, No Abnormal Bruit, No Mass, Pelvis Stable Extremities: Other (edema to R knee with some ecchymosis and tenderness to knee and just proximal. ) Skin: Ecchymosis (R knee and medial thigh) Neurological: No New Focal Deficit Psy/Mental Status: Alert, Normal Affect, Normal Mood - Problem List & Annotations (1) Fracture, femur, distal SNOMED Code(s): 252706465 Code(s): S72.409A - UNSP FRACTURE OF LOWER END OF UNSP FEMUR, INIT FOR CLOS FX Status: Acute Current Visit: Yes Qualifiers: Encounter type: initial encounter Fracture type: closed Fracture morphology: other fracture Laterality: right Qualified Code(s): S72.491A - Other fracture of lower end of right femur, initial encounter for closed fracture (2) Fall SNOMED Code(s): 2645017 Code(s): W19.XXXA - UNSPECIFIED FALL, INITIAL ENCOUNTER Status: Acute Current Visit: Yes Qualifiers: Encounter type: initial encounter Qualified Code(s): W19.XXXA - Unspecified fall, initial encounter (3) UTI (urinary tract infection) SNOMED Code(s): 01388052 Code(s): N39.0 - URINARY TRACT INFECTION, SITE NOT SPECIFIED Status: Acute Current Visit: Yes Qualifiers: Urinary tract infection type: acute cystitis Hematuria presence: with hematuria Qualified Code(s): N30.01 - Acute cystitis with hematuria (4) Atrial fibrillation SNOMED Code(s): 52222786 Code(s): I48.91 - UNSPECIFIED ATRIAL FIBRILLATION Status: Chronic Current Visit: Yes (5) Chronic anticoagulation SNOMED Code(s): 080809947 Code(s): Z79.01 - CARE HOME (CURRENT) USE OF ANTICOAGULANTS Status: Chronic Current Visit: Yes (6) History of CVA (cerebrovascular accident) SNOMED Code(s): 088791531 Code(s): Z86.73 - PRSNL HX OF TIA (TIA), AND CEREB INFRC W/O RESID DEFICITS Status: Chronic Current Visit: Yes - Problem List Review Problem List Initiated/Reviewed/Updated: Yes - My Orders Last 24 Hours: My Active Orders 11/18/17 11:21 Bedrest [RC] ASDIRECTED - Plan Plan:: 87 yo female admitted following a fall with distal femoral fracture 1. Nondisplaced right distal femoral fracture: Bedrest for now. Dr Fonseca to see this afternoon. Rockholds and Morphine ordered for pain control this morning. Tolerated Morphine well. 2. UTI: Asymptomatic, reports "I always have a UTI". Continue Keflex PO at this time. UC pending. 3. Afib: Continue Metoprolol, Continue Coumadin, INR 2.92 today. Monitor daily. Elevated this am, maybe due to pain. Monitor. 4. HTN: Stable. Continue Lisinopril. VTE prophylaxis: Coumadin Dispo: 2-3 days. Spoke with family regarding likely need for skilled care for awhile. Patient reluctant to go to [facility] but understands short term rehab may be necessary to get her back home and to remain independent. Changed to inpatient status.
--- NOTE | 2017-11-18 15:34 | PCM.CONS ---
H&P History of Present Illness - General Date of Service: 11/18/17 Admit Problem/Dx: Admission Diagnosis/Problem Admission Diagnosis/Problem UTI, Urinary tract infectious disease and distal femoral fracture on Right Source of Information: Patient History Limitations: Reports: No Limitations - History of Present Illness Initial Comments - Free Text/Narative: 87 y/o female who sustained a fall on 11/16/17. Continues to have pain in right knee. H/o R TKA many years ago--did well following surgery. Unable to WB. Was eval in ER. XR show nondisplaced fracture of lateral condyle. Admitted for pain control and UTI. Denies distal paralysis, paresthesias. Location: Reports: Lower Extremity, Right Quality: Reports: Ache, Sharp Severity: Moderate Improves with: Reports: Rest Worsens with: Reports: Movement Context: Reports: Trauma right knee Pain Score (Numeric/FACES): 5 - Related Data Allergies/Adverse Reactions: Allergies Allergy/AdvReac Type Severity Reaction Status Date / Time codeine Allergy "feels Verified 11/17/17 17:22 like I'm flying" Home Medications: Home Meds Acetaminophen [Tylenol] 325 mg PO ASDIRECTED PRN 03/23/16 [History] Aspirin 81 mg PO DAILY 03/23/16 [History] Calcium Citrate/Vitamin D3 [Calcium Cit-Vit D 315-200] 1 each PO DAILY 03/23/16 [History] Cyanocobalamin (Vitamin B-12) [B-12] 1,000 mcg PO DAILY 03/23/16 [History] Lisinopril [Prinivil] 2.5 mg PO DAILY 03/23/16 [History] Loratadine 10 mg PO BEDTIME 03/23/16 [History] Metoprolol Succinate [Toprol XL 50mg] 50 mg PO DAILY 03/23/16 [History] Warfarin Sodium [Warfarin Sodium] 2.5 mg PO BEDTIME 03/23/16 [History] atorvaSTATin Calcium [Atorvastatin Calcium] 20 mg PO DAILY 03/23/16 [History] Past Medical History HEENT History: Reports: Epistaxis, Other (See Below) Other HEENT History: states 3 episodes of epistaxis this year. 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: Musculoskeletal History: Reports: Fracture Neurological History: Reports: CVA - Infectious Disease History Infectious Disease History: Reports: Chicken Pox, Measles - Past Surgical History Neurological Surgical History: Reports: None Musculoskeletal Surgical History: Reports: Hip Replacement, Knee Replacement Social & Family History - Family History Family Medical History: Noncontributory - Tobacco Use Smoking Status *Q: Never Smoker Second Hand Smoke Exposure: No - Caffeine Use Caffeine Use: Reports: Tea - Recreational Drug Use Recreational Drug Use: No H&P Review of Systems - Review of Systems: Review Of Systems: See Below General: Reports: No Symptoms HEENT: Reports: No Symptoms Pulmonary: Reports: No Symptoms Cardiovascular: Reports: No Symptoms Gastrointestinal: Reports: No Symptoms Genitourinary: Reports: No Symptoms Musculoskeletal: Reports: Joint Pain Skin: Reports: No Symptoms Psychiatric: Reports: No Symptoms Neurological: Reports: No Symptoms Hematologic/Lymphatic: Reports: No Symptoms Immunologic: Reports: No Symptoms Exam - Exam Exam: See Below - Vital Signs Vital Signs: Last Vital Signs Temp 97.2 F 11/18/17 11:51 Pulse 102 H 11/18/17 11:51 Resp 20 11/18/17 11:51 BP 109/76 11/18/17 11:51 Pulse Ox 98 11/18/17 11:51 Weight: 78.8 kg - Exam HEENT: Conjunctiva Clear, Hearing Intact, Nares Patent, Pupils Reactive Neck: Supple, Trachea Midline Lungs: Normal Respiratory Effort Cardiovascular: Regular Rate GI/Abdominal Exam: Soft Neuro Extensive - Mental Status: Alert, Oriented x3, Normal Mood/Affect, Normal Cognition Psychiatric: Alert, Normal Affect, Normal Mood Physical Exam Comments:: Exam of RLE shows well healed anterior incision over knee. Moderate joint effusion. No pain in hip with ROM of hip. C/o pain in knee with any motion. Stable to varus/valgus stress. No calf TTP. AT/EHL/gastroc 5/5. Sensation intact. DP 2+. - Patient Data Result Diagrams: 11/18/17 06:03 11/18/17 06:03 Imaging Impressions Last 24 hrs: XR of R knee shows nondisplaced fracture of lateral condyle. TKA prosthesis in good position. Consult PN Assessment/Plan Procedures: Procedures ALANINE AMINO (ALT) (SGPT) (12/20/15) ASSAY OF CK (CPK) (08/25/15) ASSAY OF TROPONIN QUANT (10/15/17) ASSAY THYROID STIM HORMONE (09/23/17) CHEST X-RAY 1 VIEW FRONTAL (08/25/15) COMPLETE CBC AUTOMATED (09/23/17) COMPLETE CBC W/AUTO DIFF WBC (10/15/17) COMPREHEN METABOLIC PANEL (09/23/17) CONTROL OF NOSEBLEED (03/23/16) CONTROL OF NOSEBLEED (03/09/16) CREATINE MB FRACTION (08/25/15) CT HEAD/BRAIN W/O DYE (10/15/17) CT NECK SPINE W/O DYE (10/15/17) ELECTROCARDIOGRAM TRACING (10/15/17) EMERGENCY DEPT VISIT (10/15/17) EMERGENCY DEPT VISIT (03/25/16) EMERGENCY DEPT VISIT (08/25/15) LIPID PANEL (12/20/15) METABOLIC PANEL TOTAL CA (12/20/15) MICROBE SUSCEPTIBLE ANNA (08/10/15) OFFICE/OUTPATIENT VISIT EST (10/11/16) OFFICE/OUTPATIENT VISIT EST (08/22/15) OFFICE/OUTPATIENT VISIT EST (03/23/15) PPSV23 VACC 2 YRS+ SUBQ/IM (03/23/15) PROTHROMBIN TIME (10/15/17) RBC SED RATE AUTOMATED (10/11/16) ROUTINE VENIPUNCTURE (10/15/17) THROMBOPLASTIN TIME PARTIAL (03/09/16) TTE W/DOPPLER COMPLETE (08/16/15) URINALYSIS AUTO W/SCOPE (08/10/15) URINE BACTERIA CULTURE (08/10/15) URINE CULTURE/COLONY COUNT (08/10/15) X-RAY EXAM NECK SPINE 2-3 VW (10/11/16) (1) Fracture, femur, distal SNOMED Code(s): 909007865 Code(s): S72.409A - UNSP FRACTURE OF LOWER END OF UNSP FEMUR, INIT FOR CLOS FX Current Visit: Yes Qualifiers: Encounter type: initial encounter Fracture type: closed Fracture morphology: other fracture Laterality: right Qualified Code(s): S72.491A - Other fracture of lower end of right femur, initial encounter for closed fracture Problem List Initiated/Reviewed/Updated: Yes Plan: 1. CT scan of R knee to evaluate the fracture 2. knee immobilizer prn 3. PT to see for mobilization--TTWB RLE
--- NOTE | 2017-11-18 16:46 | CT ---
EXAM DATE: 11/18/17 PATIENT'S AGE: 87 Patient: SANDOVAL VALDERRAMA Facility: [place], [place] Site . Site : 1930 Study: CT Head WO CONT [id number]/28/2018 6:51:23 PM Ordering Physician: Doctor Cantu Final Report: INDICATION: Fall. Patient on blood thinners. TECHNIQUE: CT head without IV contrast. COMPARISON: CT head 11/01/20252016. FINDINGS: Small sclerotic focus in the upper right maxilla was not included on the prior exam and has a benign appearance. No intracranial hemorrhage, edema, or mass effect. Cavum septum pellucidum and vergae a normal variant finding. Moderate cerebral ends to lesser extent cerebellar atrophy. Moderately prominent patchy small vessel ischemic disease stable. The ventricles are mildly dilated and this is stable. Small old lacunar infarct in the right basal ganglia. Remainder negative. IMPRESSION: No acute intracranial disease. Stable head CT with no significant changes since 10/15/2017. Please note that all CT scans at this facility use dose modulation, iterative reconstruction, and/or weight-based dosing when appropriate to reduce radiation dose to as low as reasonably achievable. Dictated by Raji Mcdaniel MD @ Nov 17 2017 7:03PM (Electronic Signature) Report Signed by Proxy. LIN
--- NOTE | 2017-11-18 16:51 | CR ---
EXAM DATE: 11/18/17 PATIENT'S AGE: 87 Patient: SANDOVAL VALDERRAMA Facility: [place], [place] Site . Site : 1930 Study: XRay Chest [id number]/28/2018 7:39:17 PM Ordering Physician: Doctor Cantu Final Report: INDICATION: Fell. Blood thinners. TECHNIQUE: Portable AP image of the chest. COMPARISON: None. FINDINGS: No obvious infiltrate or pleural effusion. Moderate cardiomegaly. Pulmonary veins grossly normal in caliber. No obvious bony abnormality. IMPRESSION: Grossly negative chest except for moderate cardiomegaly. Dictated by Warren Snow MD @ Nov 17 2017 7:47PM (Electronic Signature) Report Signed by Proxy. LIN
--- NOTE | 2017-11-18 16:52 | CR ---
EXAM DATE: 11/18/17 PATIENT'S AGE: 87 Patient: SANDOVAL AVLDERRAMA Facility: [place], [place] Site . Site : 1930 Study: XRay Spine Cervical [id number]/28/2018 7:39:45 PM Ordering Physician: Doctor Cantu Final Report: INDICATION: Fell. Blood thinners. TECHNIQUE: Supine AP and cross-table lateral views of the cervical spine. COMPARISON: None. FINDINGS: C5 incompletely visualized and C6 and C7 not visualized on the lateral projection. No fracture or traumatic subluxation evident. Mild disk degeneration at C3-4 C4-5. Facet degenerative changes ranging from mild to advanced. IMPRESSION: 1. C5 incompletely visualized and C6 and C7 not visualized on the lateral projection. 2. No traumatic abnormality apparent. 3. Multilevel spondylosis. Dictated by Warren Snow MD @ Nov 17 2017 7:48PM (Electronic Signature) Report Signed by Proxy. LIN
--- NOTE | 2017-11-18 16:53 | CR ---
EXAM DATE: 11/18/17 PATIENT'S AGE: 87 Patient: SANDOVAL VALDERRAMA Facility: [place], [place] Site . Site : 1932 Study: XRay Knee Right [id number]/28/2018 7:40:15 PM Ordering Physician: Doctor Cantu Final Report: INDICATION: Fell. Blood thinners. TECHNIQUE: AP and cross-table lateral views of the right knee. COMPARISON: None. FINDINGS: Total knee arthroplasty. Prosthetic components well-seated and aligned. Acute nondisplaced fracture of the lateral aspect of the distal femoral metaphysis with step-off evident on the AP image. No other obvious fracture. Lipohemarthrosis demonstrated on the cross-table lateral view. IMPRESSION: 1. Acute nondisplaced fracture of the lateral aspect of the distal femoral metaphysis with lipohemarthrosis. 2. Total knee arthroplasty, intact. Dictated by Warren Snow MD @ Nov 17 2017 7:48PM (Electronic Signature) Report Signed by Proxy. LIN
[2017-11-18] MEDS: Cephalexin 500 MG Cap PO SCH (22:46)
[2017-11-19 06:04] LABS: CHLORIDE,CL 108 mmol/L (98-110); SODIUM,NA 139 mmol/L (136-146)
--- NOTE | 2017-11-19 08:20 | PCM.PN ---
- General Info Date of Service: 11/19/17 Admission Dx/Problem (Free Text): Admission Diagnosis/Problem Admission Diagnosis/Problem UTI, Urinary tract infectious disease and distal femoral fracture on Right Subjective Update: Feeling better this morning, no pain to R knee. NO chest pain or SOB. Tolerating fluids well, but just doesn't like drinking much. Functional Status: Reports: Pain Controlled, Tolerating Diet, Urinating - Review of Systems General: Reports: No Symptoms. Denies: Fever, Weakness, Fatigue HEENT: Reports: No Symptoms. Denies: Eye Pain, Headaches, Sore Throat, Visual Changes Pulmonary: Reports: No Symptoms. Denies: Shortness of Breath Cardiovascular: Reports: Edema (+1 to R leg). Denies: Chest Pain, Palpitations Gastrointestinal: Reports: No Symptoms. Denies: Abdominal Pain, Nausea, Vomiting Genitourinary: Reports: No Symptoms. Denies: Dysuria, Frequency, Burning Neurological: Reports: No Symptoms, Tremors. Denies: Confusion Psychiatric: Reports: No Symptoms. Denies: Confusion - Patient Data Vitals - Most Recent: Last Vital Signs Temp 97.5 F 11/19/17 04:00 Pulse 62 11/19/17 04:00 Resp 18 11/19/17 04:00 BP 110/54 L 11/19/17 04:00 Pulse Ox 96 11/19/17 04:00 Weight - Most Recent: 78.8 kg I&O - Last 24 Hours: Intake & Output 11/18/17 11/19/17 11/19/17 22:59 06:59 14:59 Intake Total 550 170 Output Total 425 335 Balance 125 -165 Lab Results Last 24 Hours: Laboratory Results - last 24 hr 11/19/17 11/19/17 11/19/17 Range/Units 04:58 04:58 04:58 WBC 6.65 (4.0-11.0) K/uL RBC 4.10 L (4.30-5.90) M/uL Hgb 12.7 (12.0-16.0) g/dL Hct 38.6 (36.0-46.0) % MCV 94.1 (80.0-98.0) fL MCH 31.0 (27.0-32.0) pg MCHC 32.9 (31.0-37.0) g/dL RDW Std Deviation 47.2 (28.0-62.0) fl RDW Coeff of Lori 14 (11.0-15.0) % Plt Count 132 L (150-400) K/uL MPV 10.30 (7.40-12.00) fL Neut % (Auto) 66.7 (48.0-80.0) % Lymph % (Auto) 19.7 (16.0-40.0) % [place] % (Auto) 10.4 (0.0-15.0) % Eos % (Auto) 2.9 (0.0-7.0) % Baso % (Auto) 0.3 (0.0-1.5) % Neut # (Auto) 4.4 (1.4-5.7) K/uL Lymph # (Auto) 1.3 (0.6-2.4) K/uL [place] # (Auto) 0.7 (0.0-0.8) K/uL Eos # (Auto) 0.2 (0.0-0.7) K/uL Baso # (Auto) 0.0 (0.0-0.1) K/uL Nucleated RBC % 0.0 /100WBC Nucleated RBCs # 0 K/uL INR 2.78 Sodium 139 (136-146) mmol/L Potassium 3.9 (3.5-5.1) mmol/L Chloride 108 (98-110) mmol/L Carbon Dioxide 24 (21-31) mmol/L BUN 20 (6.0-23.0) mg/dL Creatinine 0.8 (0.6-1.5) mg/dL Est Cr Clr Drug Dosing 44.72 mL/min Estimated GFR (MDRD) > 60.0 ml/min Glucose 113 H (60-110) mg/dL Calcium 8.3 L (8.8-10.8) mg/dL Med Orders - Current: Current Medications Acetaminophen (Tylenol) 650 mg PO Q4H PRN PRN Reason: Pain Hydrocodone Bitart/Acetaminophen ([place] 325-5 Mg) 1 tab PO Q4H PRN PRN Reason: Pain Last Admin: 11/18/17 13:12 Dose: 1 tab Aspirin (Aspirin) 81 mg PO DAILY [facility] Last Admin: 11/18/17 10:16 Dose: 81 mg Atorvastatin Calcium (Lipitor) 20 mg PO DAILY [facility] Last Admin: 11/18/17 10:16 Dose: 20 mg Cephalexin (Keflex) 500 mg PO Q12H [facility] Last Admin: 11/18/17 22:46 Dose: 500 mg Lisinopril (Prinivil) 2.5 mg PO DAILY [facility] Last Admin: 11/18/17 10:17 Dose: 2.5 mg Metoprolol Succinate (Toprol Xl) 50 mg PO DAILY [facility] Last Admin: 11/18/17 10:18 Dose: 50 mg Morphine Sulfate (Morphine) 2 mg IVPUSH Q4H PRN PRN Reason: severe pain Last Admin: 11/18/17 19:50 Dose: 2 mg Ondansetron HCl (Zofran) 4 mg IVPUSH Q4H PRN PRN Reason: Nausea Discontinued Medications Cephalexin (Keflex) 500 mg PO ONETIME ONE Stop: 11/17/17 19:10 Last Admin: 11/17/17 20:17 Dose: 500 mg - Exam General: Alert, Oriented, Cooperative, No Acute Distress Neck: Supple Lungs: Clear to Auscultation, Normal Respiratory Effort Cardiovascular: Regular Rate, Regular Rhythm GI/Abdominal Exam: Normal Bowel Sounds, Soft, Non-Tender, No Organomegaly, No Distention, No Abnormal Bruit, No Mass, Pelvis Stable Back Exam: Normal Inspection, Full Range of Motion Extremities: Pedal Edema (+1 to RLE), Joint Swelling (swelling noted to R knee with scant ecchymosis). No: Normal Range of Motion Neurological: No New Focal Deficit Psy/Mental Status: Alert, Normal Affect, Normal Mood - Problem List & Annotations (1) Fracture, femur, distal SNOMED Code(s): 228088264 Code(s): S72.409A - UNSP FRACTURE OF LOWER END OF UNSP FEMUR, INIT FOR CLOS FX Status: Acute Current Visit: Yes Qualifiers: Encounter type: initial encounter Fracture type: closed Fracture morphology: other fracture Laterality: right Qualified Code(s): S72.491A - Other fracture of lower end of right femur, initial encounter for closed fracture (2) Fall SNOMED Code(s): 0489014 Code(s): W19.XXXA - UNSPECIFIED FALL, INITIAL ENCOUNTER Status: Acute Current Visit: Yes Qualifiers: Encounter type: initial encounter Qualified Code(s): W19.XXXA - Unspecified fall, initial encounter (3) UTI (urinary tract infection) SNOMED Code(s): 16243532 Code(s): N39.0 - URINARY TRACT INFECTION, SITE NOT SPECIFIED Status: Acute Current Visit: Yes Qualifiers: Urinary tract infection type: acute cystitis Hematuria presence: with hematuria Qualified Code(s): N30.01 - Acute cystitis with hematuria (4) Atrial fibrillation SNOMED Code(s): 31632036 Code(s): I48.91 - UNSPECIFIED ATRIAL FIBRILLATION Status: Chronic Current Visit: Yes (5) Chronic anticoagulation SNOMED Code(s): 802066352 Code(s): Z79.01 - [facility] (CURRENT) USE OF ANTICOAGULANTS Status: Chronic Current Visit: Yes (6) History of CVA (cerebrovascular accident) SNOMED Code(s): 354437953 Code(s): Z86.73 - PRSNL HX OF TIA (TIA), AND CEREB INFRC W/O RESID DEFICITS Status: Chronic Current Visit: Yes - Problem List Review Problem List Initiated/Reviewed/Updated: Yes - My Orders Last 24 Hours: My Active Orders 11/18/17 11:21 Bedrest [RC] ASDIRECTED 11/20/17 05:00 INR,PT,PROTHROMBIN TIME [COAG] Routine 11/20/17 05:11 BMP [BASIC METABOLIC PANEL,BMP] [CHEM] AM CBC WITH AUTO DIFF [HEME] AM - Plan Plan:: 87 yo female admitted following a fall with distal femoral fracture 1. Nondisplaced right distal femoral fracture: pain well controlled. Dr Fonseca consulted yesterday. CT obtained today see report. PT ordered as well. [place] and Morphine ordered for pain control this morning. 2. UTI: Asymptomatic. Continue Keflex PO at this time. Urine very dark and cloudy this morning. Repeated UA/UC. First UC pending. If able to get up with assist will remove nixon later today. 3. Afib: Continue Metoprolol, Continue Coumadin, INR 2.78 today. Monitor. 4. HTN: Stable. Continue Lisinopril. VTE prophylaxis: Coumadin Dispo: 2-3 days. Plan for short term rehab in [place].
[2017-11-19] MEDS: atorvaSTATin 20 MG Tab PO SCH (08:32)
[2017-11-19] MEDS: Aspirin 81 MG Tab.Chew PO SCH (08:32)
[2017-11-19] MEDS: Lisinopril 5 MG Tab PO SCH (08:32)
[2017-11-19] MEDS: Metoprolol Succinate 50 MG Tab.ER PO SCH (08:33)
--- NOTE | 2017-11-19 08:56 | CT ---
CT scan of the knee Clinical history: Evaluate periprosthetic fracture at right total knee Comparison: Plain radiographs 11/17/2017. Findings: The total knee prosthesis is anchored appropriately with no lucencies about the component. There is a nondisplaced fracture line of the lateral femoral condyle extending medially approximately 1/2-2/3 the width of the neural condylar aspect of the prosthesis. Images are severely degraded by m etallic artifact and cannot be relied upon to document the fracture line in the axial plane or the sa gittal plane. The fracture line is annotated with arrows for review. Impression: Fracture documented as above.
[2017-11-19] MEDS ORDERED: Sodium Chloride 0.9% 1,000 ML IV SCH (09:15)
[2017-11-19] MEDS: Morphine 2 MG/ML Syringe IVPUSH PRN (09:29)
[2017-11-19] MEDS: Cephalexin 500 MG Cap PO SCH ×2 (10:39→23:38)
[2017-11-19] MEDS: Warfarin 2.5 MG Tab PO SCH (14:25)
[2017-11-20] MEDS: Morphine 2 MG/ML Syringe IVPUSH PRN (05:29)
[2017-11-20 06:21] LABS: CHLORIDE,CL 111 mmol/L (98-110); SODIUM,NA 140 mmol/L (136-146)
[2017-11-20] MEDS: atorvaSTATin 20 MG Tab PO SCH (08:56)
[2017-11-20] MEDS: Aspirin 81 MG Tab.Chew PO SCH (08:56)
[2017-11-20] MEDS: Lisinopril 5 MG Tab PO SCH (08:57)
[2017-11-20] MEDS: Metoprolol Succinate 50 MG Tab.ER PO SCH (08:57)
[2017-11-20] MEDS: Cephalexin 500 MG Cap PO SCH ×2 (10:22→23:35)
--- NOTE | 2017-11-20 11:20 | PCM.SURGPN ---
- General Info Date of Service: 11/20/17 Functional Status: Reports: Pain Controlled - Review of Systems General: Reports: No Symptoms Systems Review Comment:: Patient has been improving. Pain well controlled with occasional morphine. Has been getting OOB to chair with TTWB. Uses knee immobilizer a majority of the time. No other complaints today. - Patient Data Vitals - Most Recent: Last Vital Signs Temp 98.2 F 11/20/17 08:00 Pulse 84 11/20/17 08:57 Resp 18 11/20/17 08:00 BP 132/68 11/20/17 08:57 Pulse Ox 94 L 11/20/17 08:00 Weight - Most Recent: 78.8 kg I&O - Last 24 Hours: Intake & Output 11/19/17 11/20/17 11/20/17 22:59 06:59 14:59 Intake Total 560 490 Output Total 275 Balance 285 490 Lab Results Last 24 Hrs: Laboratory Results - last 24 hr 11/20/17 11/20/17 11/20/17 Range/Units 05:49 05:49 05:49 WBC 7.87 (4.0-11.0) K/uL RBC 4.07 L (4.30-5.90) M/uL Hgb 12.5 (12.0-16.0) g/dL Hct 38.5 (36.0-46.0) % MCV 94.6 (80.0-98.0) fL MCH 30.7 (27.0-32.0) pg MCHC 32.5 (31.0-37.0) g/dL RDW Std Deviation 47.7 (28.0-62.0) fl RDW Coeff of Lori 14 (11.0-15.0) % Plt Count 129 L (150-400) K/uL MPV 10.20 (7.40-12.00) fL Neut % (Auto) 63.9 (48.0-80.0) % Lymph % (Auto) 21.5 (16.0-40.0) % [place] % (Auto) 8.3 (0.0-15.0) % Eos % (Auto) 6.0 (0.0-7.0) % Baso % (Auto) 0.3 (0.0-1.5) % Neut # (Auto) 5.0 (1.4-5.7) K/uL Lymph # (Auto) 1.7 (0.6-2.4) K/uL [place] # (Auto) 0.7 (0.0-0.8) K/uL Eos # (Auto) 0.5 (0.0-0.7) K/uL Baso # (Auto) 0.0 (0.0-0.1) K/uL Nucleated RBC % 0.0 /100WBC Nucleated RBCs # 0 K/uL INR 2.82 Sodium 140 (136-146) mmol/L Potassium 3.9 (3.5-5.1) mmol/L Chloride 111 H (98-110) mmol/L Carbon Dioxide 23 (21-31) mmol/L BUN 19 (6.0-23.0) mg/dL Creatinine 0.8 (0.6-1.5) mg/dL Est Cr Clr Drug Dosing 44.72 mL/min Estimated GFR (MDRD) > 60.0 ml/min Glucose 91 (60-110) mg/dL Calcium 8.0 L (8.8-10.8) mg/dL Total Bilirubin 1.5 (0.1-1.5) mg/dL AST 24 (5-40) IU/L ALT 15 (8-54) IU/L Alkaline Phosphatase 62 (40-150) Total Protein 5.5 L (6.0-8.0) g/dL Albumin 3.1 L (3.4-4.8) g/dL Globulin 2.4 (2.0-3.5) g/dL Albumin/Globulin Ratio 1.3 (1.3-2.8) Med Orders - Current: Current Medications Acetaminophen (Tylenol) 650 mg PO Q4H PRN PRN Reason: Pain Hydrocodone Bitart/Acetaminophen ([place] 325-5 Mg) 1 tab PO Q4H PRN PRN Reason: Pain Last Admin: 11/18/17 13:12 Dose: 1 tab Aspirin (Aspirin) 81 mg PO DAILY [facility] Last Admin: 11/20/17 08:56 Dose: 81 mg Atorvastatin Calcium (Lipitor) 20 mg PO DAILY [facility] Last Admin: 11/20/17 08:56 Dose: 20 mg Cephalexin (Keflex) 500 mg PO Q12H [facility] Last Admin: 11/20/17 10:22 Dose: 500 mg Lisinopril (Prinivil) 2.5 mg PO DAILY [facility] Last Admin: 11/20/17 08:57 Dose: 2.5 mg Metoprolol Succinate (Toprol Xl) 50 mg PO DAILY [facility] Last Admin: 11/20/17 08:57 Dose: 50 mg Morphine Sulfate (Morphine) 2 mg IVPUSH Q4H PRN PRN Reason: severe pain Last Admin: 11/20/17 05:29 Dose: 2 mg Ondansetron HCl (Zofran) 4 mg IVPUSH Q4H PRN PRN Reason: Nausea Warfarin Sodium (Coumadin) 2.5 mg PO 1400 [facility] Last Admin: 11/19/17 14:25 Dose: 2.5 mg Discontinued Medications Cephalexin (Keflex) 500 mg PO ONETIME ONE Stop: 11/17/17 19:10 Last Admin: 11/17/17 20:17 Dose: 500 mg Sodium Chloride (Normal Saline) 1,000 mls @ 125 mls/hr IV ASDIRECTED [facility] Stop: 11/19/17 17:14 Last Admin: 11/19/17 09:26 Dose: 125 mls/hr Warfarin Sodium (Coumadin Ask) 1 each PO ONETIME ONE Stop: 11/19/17 13:43 Last Admin: 11/19/17 14:25 Dose: 1 each - Exam General: Alert, Oriented Physical Findings Comment:: Exam of RLE shows immobilizer in place. AT/EHL/gastroc 5/5. Sensation intact. DP 2+. No pain with hip rotation. - Problem List & Annotations (1) Fracture, femur, distal SNOMED Code(s): 994231896 Code(s): S72.409A - UNSP FRACTURE OF LOWER END OF UNSP FEMUR, INIT FOR CLOS FX Status: Acute Current Visit: Yes Qualifiers: Encounter type: initial encounter Fracture type: closed Fracture morphology: other fracture Laterality: right Qualified Code(s): S72.491A - Other fracture of lower end of right femur, initial encounter for closed fracture - Problem List Review Problem List Initiated/Reviewed/Updated: Yes - My Orders Last 24 Hours: Active Orders 24 hr Category Date Time Status PT Evaluation and Treatment [CONS] Routine Cons 11/19/17 15:34 Active CMP [COMPREHENSIVE METABOLIC PN,CMP] [CHEM] AM Lab 11/21/17 05:11 Ordered Warfarin [Coumadin] Med 11/19/17 14:00 Active 2.5 mg PO 1400 Medication Orders Acetaminophen (Tylenol) 650 mg PO Q4H PRN PRN Reason: Pain Hydrocodone Bitart/Acetaminophen ([place] 325-5 Mg) 1 tab PO Q4H PRN PRN Reason: Pain Last Admin: 11/18/17 13:12 Dose: 1 tab Aspirin (Aspirin) 81 mg PO DAILY [facility] Last Admin: 11/20/17 08:56 Dose: 81 mg Admin: 11/19/17 08:32 Dose: 81 mg Admin: 11/18/17 10:16 Dose: 81 mg Atorvastatin Calcium (Lipitor) 20 mg PO DAILY [facility] Last Admin: 11/20/17 08:56 Dose: 20 mg Admin: 11/19/17 08:32 Dose: 20 mg Admin: 11/18/17 10:16 Dose: 20 mg Cephalexin (Keflex) 500 mg PO Q12H [facility] Last Admin: 11/20/17 10:22 Dose: 500 mg Admin: 11/19/17 23:38 Dose: 500 mg Admin: 11/19/17 10:39 Dose: 500 mg Admin: 11/18/17 22:46 Dose: 500 mg Lisinopril (Prinivil) 2.5 mg PO DAILY [facility] Last Admin: 11/20/17 08:57 Dose: 2.5 mg Admin: 11/19/17 08:32 Dose: 2.5 mg Admin: 11/18/17 10:17 Dose: 2.5 mg Metoprolol Succinate (Toprol Xl) 50 mg PO DAILY [facility] Last Admin: 11/20/17 08:57 Dose: 50 mg Admin: 11/19/17 08:33 Dose: 50 mg Admin: 11/18/17 10:18 Dose: 50 mg Morphine Sulfate (Morphine) 2 mg IVPUSH Q4H PRN PRN Reason: severe pain Last Admin: 11/20/17 05:29 Dose: 2 mg Admin: 11/19/17 09:29 Dose: 2 mg Admin: 11/18/17 19:50 Dose: 2 mg Admin: 11/18/17 09:42 Dose: 2 mg Ondansetron HCl (Zofran) 4 mg IVPUSH Q4H PRN PRN Reason: Nausea Warfarin Sodium (Coumadin) 2.5 mg PO 1400 [facility] Last Admin: 11/19/17 14:25 Dose: 2.5 mg - Plan Plan (Free Text/Narrative):: 1. continue PT for bed to chair transfers--TTWB RLE 2. knee immobilizer prn--use for comfort 3. CT of knee reviewed. Fracture of lateral femoral condyle does not appear to connect to the prosthesis. Overall, fracture appears to be stable with minimal displacement. 4. Tramadol or Tylenol prn for pain 5. OK to discharge to [facility] from ortho standpoint. Will arrange f/u for ~5 weeks in clinic. Advised to RTC or call if questions/concerns. Will sign off. Please reconsult prn.
--- NOTE | 2017-11-20 11:45 | PCM.PN ---
- General Info Date of Service: 11/20/17 Admission Dx/Problem (Free Text): Admission Diagnosis/Problem Admission Diagnosis/Problem UTI, Urinary tract infectious disease and distal femoral fracture on Right Subjective Update: Sitting in chair this morning, eating breakfast. Denies much pain, occassionally needs pain medication. Nursing reports she is doing better and better with pivoting to chair, but remains max 2 assist. No chest pain or SOB. No dysuria noted. Functional Status: Reports: Pain Controlled, Tolerating Diet, Urinating - Review of Systems Pulmonary: Reports: No Symptoms. Denies: Shortness of Breath Cardiovascular: Reports: No Symptoms. Denies: Chest Pain Gastrointestinal: Reports: No Symptoms. Denies: Abdominal Pain, Nausea, Vomiting Genitourinary: Reports: No Symptoms. Denies: Dysuria, Frequency, Burning, Pain , Urgency Musculoskeletal: Reports: Other (knee pain only with movement. immobilizer in place) Skin: Reports: No Symptoms Neurological: Reports: No Symptoms Psychiatric: Reports: No Symptoms - Patient Data Vitals - Most Recent: Last Vital Signs Temp 98.2 F 11/20/17 08:00 Pulse 84 11/20/17 08:57 Resp 18 11/20/17 08:00 BP 132/68 11/20/17 08:57 Pulse Ox 94 L 11/20/17 08:00 Weight - Most Recent: 78.8 kg I&O - Last 24 Hours: Intake & Output 11/19/17 11/20/17 11/20/17 22:59 06:59 14:59 Intake Total 560 490 Output Total 275 Balance 285 490 Lab Results Last 24 Hours: Laboratory Results - last 24 hr 11/20/17 11/20/17 11/20/17 Range/Units 05:49 05:49 05:49 WBC 7.87 (4.0-11.0) K/uL RBC 4.07 L (4.30-5.90) M/uL Hgb 12.5 (12.0-16.0) g/dL Hct 38.5 (36.0-46.0) % MCV 94.6 (80.0-98.0) fL MCH 30.7 (27.0-32.0) pg MCHC 32.5 (31.0-37.0) g/dL RDW Std Deviation 47.7 (28.0-62.0) fl RDW Coeff of Lori 14 (11.0-15.0) % Plt Count 129 L (150-400) K/uL MPV 10.20 (7.40-12.00) fL Neut % (Auto) 63.9 (48.0-80.0) % Lymph % (Auto) 21.5 (16.0-40.0) % [place] % (Auto) 8.3 (0.0-15.0) % Eos % (Auto) 6.0 (0.0-7.0) % Baso % (Auto) 0.3 (0.0-1.5) % Neut # (Auto) 5.0 (1.4-5.7) K/uL Lymph # (Auto) 1.7 (0.6-2.4) K/uL [place] # (Auto) 0.7 (0.0-0.8) K/uL Eos # (Auto) 0.5 (0.0-0.7) K/uL Baso # (Auto) 0.0 (0.0-0.1) K/uL Nucleated RBC % 0.0 /100WBC Nucleated RBCs # 0 K/uL INR 2.82 Sodium 140 (136-146) mmol/L Potassium 3.9 (3.5-5.1) mmol/L Chloride 111 H (98-110) mmol/L Carbon Dioxide 23 (21-31) mmol/L BUN 19 (6.0-23.0) mg/dL Creatinine 0.8 (0.6-1.5) mg/dL Est Cr Clr Drug Dosing 44.72 mL/min Estimated GFR (MDRD) > 60.0 ml/min Glucose 91 (60-110) mg/dL Calcium 8.0 L (8.8-10.8) mg/dL Total Bilirubin 1.5 (0.1-1.5) mg/dL AST 24 (5-40) IU/L ALT 15 (8-54) IU/L Alkaline Phosphatase 62 (40-150) Total Protein 5.5 L (6.0-8.0) g/dL Albumin 3.1 L (3.4-4.8) g/dL Globulin 2.4 (2.0-3.5) g/dL Albumin/Globulin Ratio 1.3 (1.3-2.8) Med Orders - Current: Current Medications Acetaminophen (Tylenol) 650 mg PO Q4H PRN PRN Reason: Pain Aspirin (Aspirin) 81 mg PO DAILY [facility] Last Admin: 11/20/17 08:56 Dose: 81 mg Atorvastatin Calcium (Lipitor) 20 mg PO DAILY [facility] Last Admin: 11/20/17 08:56 Dose: 20 mg Cephalexin (Keflex) 500 mg PO Q12H [facility] Last Admin: 11/20/17 10:22 Dose: 500 mg Lisinopril (Prinivil) 2.5 mg PO DAILY [facility] Last Admin: 11/20/17 08:57 Dose: 2.5 mg Metoprolol Succinate (Toprol Xl) 50 mg PO DAILY [facility] Last Admin: 11/20/17 08:57 Dose: 50 mg Morphine Sulfate (Morphine) 2 mg IVPUSH Q4H PRN PRN Reason: severe pain Last Admin: 11/20/17 05:29 Dose: 2 mg Ondansetron HCl (Zofran) 4 mg IVPUSH Q4H PRN PRN Reason: Nausea Tramadol HCl (Ultram) 50 - 100 mg PO Q6H PRN PRN Reason: Breakthrough Pain Warfarin Sodium (Coumadin) 2.5 mg PO 1400 [facility] Last Admin: 11/19/17 14:25 Dose: 2.5 mg Discontinued Medications Hydrocodone Bitart/Acetaminophen ([place] 325-5 Mg) 1 tab PO Q4H PRN PRN Reason: Pain Last Admin: 11/18/17 13:12 Dose: 1 tab Cephalexin (Keflex) 500 mg PO ONETIME ONE Stop: 11/17/17 19:10 Last Admin: 11/17/17 20:17 Dose: 500 mg Sodium Chloride (Normal Saline) 1,000 mls @ 125 mls/hr IV ASDIRECTED [facility] Stop: 11/19/17 17:14 Last Admin: 11/19/17 09:26 Dose: 125 mls/hr Warfarin Sodium (Coumadin Ask) 1 each PO ONETIME ONE Stop: 11/19/17 13:43 Last Admin: 11/19/17 14:25 Dose: 1 each - Exam General: Alert, Oriented, Cooperative, No Acute Distress Lungs: Clear to Auscultation, Normal Respiratory Effort Cardiovascular: Regular Rate, Regular Rhythm GI/Abdominal Exam: Normal Bowel Sounds, Soft, Non-Tender, No Organomegaly, No Distention, No Abnormal Bruit, No Mass, Pelvis Stable Extremities: Normal Inspection, Normal Range of Motion, Non-Tender, No Pedal Edema, Normal Capillary Refill Skin: Warm, Dry, Intact Neurological: No New Focal Deficit Psy/Mental Status: Alert, Normal Affect, Normal Mood - Problem List & Annotations (1) Fracture, femur, distal SNOMED Code(s): 381317599 Code(s): S72.409A - UNSP FRACTURE OF LOWER END OF UNSP FEMUR, INIT FOR CLOS FX Status: Acute Current Visit: Yes Qualifiers: Encounter type: initial encounter Fracture type: closed Fracture morphology: other fracture Laterality: right Qualified Code(s): S72.491A - Other fracture of lower end of right femur, initial encounter for closed fracture (2) Fall SNOMED Code(s): 5031823 Code(s): W19.XXXA - UNSPECIFIED FALL, INITIAL ENCOUNTER Status: Acute Current Visit: Yes Qualifiers: Encounter type: initial encounter Qualified Code(s): W19.XXXA - Unspecified fall, initial encounter (3) UTI (urinary tract infection) SNOMED Code(s): 55841202 Code(s): N39.0 - URINARY TRACT INFECTION, SITE NOT SPECIFIED Status: Acute Current Visit: Yes Qualifiers: Urinary tract infection type: acute cystitis Hematuria presence: with hematuria Qualified Code(s): N30.01 - Acute cystitis with hematuria (4) Atrial fibrillation SNOMED Code(s): 40375051 Code(s): I48.91 - UNSPECIFIED ATRIAL FIBRILLATION Status: Chronic Current Visit: Yes (5) Chronic anticoagulation SNOMED Code(s): 073508114 Code(s): Z79.01 - [employer] (CURRENT) USE OF ANTICOAGULANTS Status: Chronic Current Visit: Yes (6) History of CVA (cerebrovascular accident) SNOMED Code(s): 925821818 Code(s): Z86.73 - PRSNL HX OF TIA (TIA), AND CEREB INFRC W/O RESID DEFICITS Status: Chronic Current Visit: Yes - Problem List Review Problem List Initiated/Reviewed/Updated: Yes - My Orders Last 24 Hours: My Active Orders 11/21/17 05:11 CMP [COMPREHENSIVE METABOLIC PN,CMP] [CHEM] AM - Plan Plan:: 87 yo female admitted following a fall with distal femoral fracture 1. Nondisplaced right distal femoral fracture: pain well controlled. Dr Fonseca consulted, we appreciated her assistance. PT ordered as well. [place] and Morphine ordered for pain control this morning. Heel pads placed due to pain in heels, no tissue concerns noted now. 2. UTI: Large RBC noted, likely from nixon trauma and Coumadin. Nixon removed yesterday, voiding well. Continue Keflex PO at this time. UC pending. 3. Afib: Continue Metoprolol, Continue Coumadin, INR 2.82 today. Monitor. 4. HTN: Stable. Continue Lisinopril. VTE prophylaxis: Coumadin Dispo: Plan for short term rehab in [facility] in am.
[2017-11-20] MEDS: traMADol 50 MG Tab PO PRN (12:44)
[2017-11-20] MEDS: Warfarin 2.5 MG Tab PO SCH (13:53)
[2017-11-21] MEDS: traMADol 50 MG Tab PO PRN (05:07)
[2017-11-21 06:12] LABS: CHLORIDE,CL 108 mmol/L (98-110); SODIUM,NA 140 mmol/L (136-146)
--- NOTE | 2017-11-21 08:02 | PCM.DCSUM1 ---
Discharge Summary - Hospital Course Brief History: 87 yo female with pmh of atrial fibrillation and CVA on coumadin who presents to the ED with right leg pain. Patient tripped over her feet while trying to pick something off the ground. She fell and hear something. She had pain in her right leg immediately. The fall occured yesterday and she sat in her chair most of the day today as she was afraid to come in as she did not want to be sent to [facility]. She did call EMS as she was not able to move her leg without pain. In the ED she was discovered on X-ray to have an acute nondisplaced frature of the lateral aspect of the distal femoral metaphysis with lipohemarthrosis. She was also noted to have a UTI. She denies any chest pain, shortness of breath, dizziness, numbness or weakness. - Discharge Data Discharge Date: 11/21/17 Discharge Disposition: DC/Tfer to SNF 03 Condition: Good - Discharge Diagnosis/Problem(s) (1) Fracture, femur, distal SNOMED Code(s): 476725685 ICD Code: S72.409A - UNSP FRACTURE OF LOWER END OF UNSP FEMUR, INIT FOR CLOS FX Status: Acute Current Visit: Yes Qualifiers: Encounter type: initial encounter Fracture type: closed Fracture morphology: other fracture Laterality: right Qualified Code(s): S72.491A - Other fracture of lower end of right femur, initial encounter for closed fracture (2) Fall SNOMED Code(s): 1933061 ICD Code: W19.XXXA - UNSPECIFIED FALL, INITIAL ENCOUNTER Status: Acute Current Visit: Yes Qualifiers: Encounter type: initial encounter Qualified Code(s): W19.XXXA - Unspecified fall, initial encounter (3) UTI (urinary tract infection) SNOMED Code(s): 62175680 ICD Code: N39.0 - URINARY TRACT INFECTION, SITE NOT SPECIFIED Status: Acute Current Visit: Yes Qualifiers: Urinary tract infection type: acute cystitis Hematuria presence: with hematuria Qualified Code(s): N30.01 - Acute cystitis with hematuria (4) Atrial fibrillation SNOMED Code(s): 40589445 ICD Code: I48.91 - UNSPECIFIED ATRIAL FIBRILLATION Status: Chronic Current Visit: Yes (5) Chronic anticoagulation SNOMED Code(s): 033882010 ICD Code: Z79.01 - ADJUNCT LECTURER (CURRENT) USE OF ANTICOAGULANTS Status: Chronic Current Visit: Yes (6) History of CVA (cerebrovascular accident) SNOMED Code(s): 698423675 ICD Code: Z86.73 - PRSNL HX OF TIA (TIA), AND CEREB INFRC W/O RESID DEFICITS Status: Chronic Current Visit: Yes - Patient Summary/Data Consults: Consultations 11/19/17 15:34 PT Evaluation and Treatment [CONS] Routine - Patient Instructions Diet: Regular Diet as Tolerated Activity: No Strenuous Activities Activity, Other: TTWB RLE, ROM as tolerated. May use immobilizer prn for comfort Driving: Do Not Drive Showering/Bathing: May Shower Other/Special Instructions: PT/OT/ST to evaluate and treat. R knee immobilzer to knee. Heel protectors/elevate heels as possible - Discharge Plan Prescriptions/Med Rec: Acetaminophen [Tylenol] 650 mg PO Q4H PRN #20 tablet PRN Reason: Pain Levofloxacin [Levaquin] 750 mg PO Q48H #5 tablet Nystatin [Nystop] 100,000 units TOP TID #1 bottle traMADol [Ultram] 50 mg PO Q6H PRN #30 tablet PRN Reason: Pain Home Medications: Home Meds Aspirin 81 mg PO DAILY 03/23/16 [History] Calcium Citrate/Vitamin D3 [Calcium Cit-Vit D 315-200] 1 each PO DAILY 03/23/16 [History] Cyanocobalamin (Vitamin B-12) [B-12] 1,000 mcg PO DAILY 03/23/16 [History] Lisinopril [Prinivil] 2.5 mg PO DAILY 03/23/16 [History] Loratadine 10 mg PO BEDTIME 03/23/16 [History] Metoprolol Succinate [Toprol XL 50mg] 50 mg PO DAILY 03/23/16 [History] Warfarin Sodium 2.5 mg PO BEDTIME 03/23/16 [History] atorvaSTATin Calcium [Atorvastatin Calcium] 20 mg PO DAILY 03/23/16 [History] Acetaminophen [Tylenol] 650 mg PO Q4H PRN #20 tablet 11/21/17 [Rx] Levofloxacin [Levaquin] 750 mg PO Q48H #5 tablet 11/21/17 [Rx] Nystatin [Nystop] 100,000 units TOP TID #1 bottle 11/21/17 [Rx] traMADol [Ultram] 50 mg PO Q6H PRN #30 tablet 11/21/17 [Rx] Patient Handouts: Nystatin topical powder, Tramadol tablets, Acetaminophen tablets or caplets, Cephalexin tablets or capsules Referrals: Nisha Fonseca MD [Physician] - 12/24/17 2:00 pm Stuart Gonzalez MD [Physician] - - Discharge Summary/Plan Comment DC Time >30 min.: No Discharge Summary/Plan Comment: Discharge Diagnoses: Non displaced distal femur fracture UTI-Klebsiella oxytoca Afib Anticoagulation with coumadin Hx CVA Shea Tamayo was admitted for distal femur fracture. Dr Fonseca was consulted, no surgical intervention needed, see consultation. Knee immobilizer on when ambulating. Pain has been well controlled with Tramadol. On admission she was noted to have UTI, she was treated with PO Keflex. UC was obtained and returned this morning with Klebsiella Oxytoca, resistant to first generation cephalosporins. Keflex discontinued and Levaquin added. INR 2.85, will have INR checked on Saturday due to chronic anticoagulation with Coumadin. Today she is doing well. She has been afebrile, WBC WNL. She will be transferred to [place] for short term rehab due to gait instability with TTWB to R leg. Dr. Gonzalez notified of transfer and has accepted patient upon discharge to [place]. - General Info Date of Service: 11/21/17 Admission Dx/Problem (Free Text: Admission Diagnosis/Problem Admission Diagnosis/Problem UTI, Urinary tract infectious disease and distal femoral fracture on Right Subjective Update: Feeling good this morning, up to chair with assist of 2. Pain is tolerable. No chest pain, SOB or abdominal pain. No urinary symptoms. Functional Status: Reports: Pain Controlled, Tolerating Diet, Ambulating, Urinating - Review of Systems HEENT: Reports: No Symptoms Pulmonary: Reports: No Symptoms. Denies: Shortness of Breath Cardiovascular: Reports: No Symptoms. Denies: Chest Pain Gastrointestinal: Reports: No Symptoms. Denies: Abdominal Pain, Nausea, Vomiting Genitourinary: Reports: No Symptoms. Denies: Dysuria, Frequency, Burning Musculoskeletal: Reports: Joint Pain (R knee) Neurological: Reports: No Symptoms. Denies: Confusion Psychiatric: Reports: No Symptoms. Denies: Confusion - Patient Data Vitals - Most Recent: Last Vital Signs Temp 98.6 F 11/21/17 04:00 Pulse 78 11/21/17 04:00 Resp 17 11/21/17 04:00 BP 126/74 11/21/17 04:00 Pulse Ox 97 11/21/17 04:00 Weight - Most Recent: 78.8 kg I&O - Last 24 hours: Intake & Output 11/20/17 11/21/17 11/21/17 22:59 06:59 14:59 Intake Total 450 400 Balance 450 400 Lab Results - Last 24 hrs: Laboratory Results - last 24 hr 11/21/17 Range/Units 05:11 Sodium 140 (136-146) mmol/L Potassium 4.6 (3.5-5.1) mmol/L Chloride 108 (98-110) mmol/L Carbon Dioxide 24 (21-31) mmol/L BUN 19 (6.0-23.0) mg/dL Creatinine 0.8 (0.6-1.5) mg/dL Est Cr Clr Drug Dosing 44.72 mL/min Estimated GFR (MDRD) > 60.0 ml/min Glucose 86 (60-110) mg/dL Calcium 8.4 L (8.8-10.8) mg/dL Total Bilirubin 1.6 H (0.1-1.5) mg/dL AST 26 (5-40) IU/L ALT 19 (8-54) IU/L Alkaline Phosphatase 66 (40-150) Total Protein 6.1 (6.0-8.0) g/dL Albumin 3.4 (3.4-4.8) g/dL Globulin 2.7 (2.0-3.5) g/dL Albumin/Globulin Ratio 1.3 (1.3-2.8) Med Orders - Current: Current Medications Acetaminophen (Tylenol) 650 mg PO Q4H PRN PRN Reason: Pain Aspirin (Aspirin) 81 mg PO DAILY [facility] Last Admin: 11/20/17 08:56 Dose: 81 mg Atorvastatin Calcium (Lipitor) 20 mg PO DAILY [facility] Last Admin: 11/20/17 08:56 Dose: 20 mg Cephalexin (Keflex) 500 mg PO Q12H [facility] Last Admin: 11/20/17 23:35 Dose: 500 mg Lisinopril (Prinivil) 2.5 mg PO DAILY [facility] Last Admin: 11/20/17 08:57 Dose: 2.5 mg Metoprolol Succinate (Toprol Xl) 50 mg PO DAILY [facility] Last Admin: 11/20/17 08:57 Dose: 50 mg Morphine Sulfate (Morphine) 2 mg IVPUSH Q4H PRN PRN Reason: severe pain Last Admin: 11/20/17 05:29 Dose: 2 mg Nystatin (Nystop) 1 gm TOP TID [facility] Ondansetron HCl (Zofran) 4 mg IVPUSH Q4H PRN PRN Reason: Nausea Tramadol HCl (Ultram) 50 - 100 mg PO Q6H PRN PRN Reason: Breakthrough Pain Last Admin: 11/21/17 05:07 Dose: 100 mg Warfarin Sodium (Coumadin) 2.5 mg PO 1400 [facility] Last Admin: 11/20/17 13:53 Dose: 2.5 mg Discontinued Medications Hydrocodone Bitart/Acetaminophen ([place] 325-5 Mg) 1 tab PO Q4H PRN PRN Reason: Pain Last Admin: 11/18/17 13:12 Dose: 1 tab Cephalexin (Keflex) 500 mg PO ONETIME ONE Stop: 11/17/17 19:10 Last Admin: 11/17/17 20:17 Dose: 500 mg Sodium Chloride (Normal Saline) 1,000 mls @ 125 mls/hr IV ASDIRECTED [facility] Stop: 11/19/17 17:14 Last Admin: 11/19/17 09:26 Dose: 125 mls/hr Warfarin Sodium (Coumadin Ask) 1 each PO ONETIME ONE Stop: 11/19/17 13:43 Last Admin: 11/19/17 14:25 Dose: 1 each - Exam General: Reports: Alert, Oriented, Cooperative, No Acute Distress Neck: Reports: Supple Lungs: Reports: Clear to Auscultation, Normal Respiratory Effort Cardiovascular: Reports: Regular Rate, No Murmurs, Irregular Rhythm GI/Abdominal Exam: Normal Bowel Sounds, Soft, Non-Tender, No Organomegaly, No Distention, No Abnormal Bruit, No Mass, Pelvis Stable Extremities: Normal Inspection, Pedal Edema (scant pedal edema), Joint Swelling (R knee) Skin: Reports: Rash (under R breast, with some open abrasions, reports this happens a lot. Buttock reddened with open abrasion to fluteal cleft. Nystatin applied. Bruising to R scapula from fall, healing) Neurological: Reports: No New Focal Deficit Psy/Mental Status: Reports: Alert, Normal Affect, Normal Mood *Q Meaningful Use (DIS) - VTE *Q VTE Criteria *Q: - Stroke *Q Stroke Criteria *Q: - AMI *Q AMI Criteria *Q:
[2017-11-21] MEDS: Lisinopril 5 MG Tab PO SCH (08:13)
[2017-11-21] MEDS: Metoprolol Succinate 50 MG Tab.ER PO SCH (08:13)
[2017-11-21] MEDS: Aspirin 81 MG Tab.Chew PO SCH (08:13)
[2017-11-21] MEDS: atorvaSTATin 20 MG Tab PO SCH (08:13)
[2017-11-21] MEDS: Cephalexin 500 MG Cap PO SCH (10:25)
[2017-11-21] MEDS ORDERED: Levofloxacin 250 MG Tab PO SCH (10:45)
[2017-11-21 11:42] VITALS: BP 134/71
[2017-11-21] MEDS: Warfarin 2.5 MG Tab PO SCH (13:44)
[2017-11-21] MEDS ORDERED: Nystatin Topical Powder 15 GM Bottle TOP SCH (14:00)
== END 2017-11-21 13:55 | DRG 534 ==
LOC: MW.ED 16:57 → MW.MS 20:13 → MW.ED 20:41 → OBSVTOIN 11-18 11:19 → MW.MS 11-18 12:50
PROVIDERS: ADMIT Internal Medicine; ATTEND Internal Medicine
DX: S72.491A Other fracture of lower end of right femur, initial encounter for closed fracture (principal); N30.01 Acute cystitis with hematuria; N39.0 Urinary tract infection, site not specified; B96.89 Other specified bacterial agents as the cause of diseases classified elsewhere; I48.91 Unspecified atrial fibrillation; R09.02 Hypoxemia; W18.39XA Other fall on same level, initial encounter; Y93.89 Activity, other specified; Y92.019 Unspecified place in single-family (private) house as the place of occurrence of the external cause; Z79.01 Long term (current) use of anticoagulants; Z86.73 Personal history of transient ischemic attack (TIA), and cerebral infarction without residual deficits; Z79.899 Other long term (current) drug therapy; Z88.8 Allergy status to other drugs, medicaments and biological substances; Z96.641 Presence of right artificial hip joint; Z96.651 Presence of right artificial knee joint; Z91.81 History of falling
CPT/HCPCS: 36415 ×2; 51702; 70450; 71045; 72040; 73560; 80048; 80053; 81001; 82550; 84484; 85025 ×2; 85610 ×2; 93005; 96374; 99285; A9270 ×5; G0378 ×2; J2270; 73700-26-RT; 73700-RT; 87086; 87088; 87186; 97161-GP; 97530-GP; 99284; J7040